=== PATIENT | female | born 1975 | race Caucasian/White ===

== ENCOUNTER 2021-11-28 09:55 | Outpatient (CLI) | payer OTHER | END 2021-11-28 09:57 | disposition home or self-care (01) | LOC: RX STUDY 09:55 | DX: N80.0 Endometriosis of uterus (principal) ==

== ENCOUNTER 2023-10-28 10:14 | Outpatient (CLI) | payer OTHER | END 2023-10-28 10:16 | disposition home or self-care (01) | LOC: PRENATAL 10:14 | PROVIDERS: ATTEND Obstetrics & Gynecology Maternal & Fetal Medicine | DX: Z76.1 Encounter for health supervision and care of foundling (principal) ==